=== PATIENT | male | born 1985 | race Caucasian/White ===

== ENCOUNTER 2024-03-21 15:25 | Emergency (ER) | payer SELFPAY ==
[2024-03-21] MEDS ORDERED: Proparacaine 0.5% Opth 15 ML BOT ONE (18:18)
[2024-03-21] MEDS ORDERED: Fluorescein Opthalmic Strip ONE (18:18)
== END 2024-03-21 18:32 | disposition home or self-care (01) ==
LOC: ERS 15:25
DX: S05.02XA Injury of conjunctiva and corneal abrasion without foreign body, left eye, initial encounter (principal); F17.210 Nicotine dependence, cigarettes, uncomplicated; X58.XXXA Exposure to other specified factors, initial encounter
CPT/HCPCS: 99282